=== PATIENT | female | born 1970 | race Caucasian/White ===

== ENCOUNTER → 2016-12-19 | Outpatient (CLI) | payer OTHER, MEDICAID | LOC: FIMAGING 14:06 | DX: Z12.39 Encounter for other screening for malignant neoplasm of breast (principal); N64.4 Mastodynia; N63 Unspecified lump in breast | CPT/HCPCS: 76641; G0204 ==

== ENCOUNTER → 2017-02-20 | Outpatient (CLI) | payer OTHER, MEDICAID | LOC: FIMAGING 13:20 | PROVIDERS: ATTEND Obstetrics & Gynecology Gynecology | DX: R10.2 Pelvic and perineal pain (principal); D25.2 Subserosal leiomyoma of uterus; D25.1 Intramural leiomyoma of uterus; N83.292 Other ovarian cyst, left side ==

== ENCOUNTER → 2018-03-02 | Day surgery (SDC) | payer OTHER, MEDICAID ==
[~2018-03-02] MED LIST: BUPIVACAINE 0.5% 30 ML SDV ONE; LIDOCAINE 1% 300 MG/30 ML SDV ONE; THROMBIN (BOVINE) 5,000 UNIT VIAL TP ONE
== END | disposition home or self-care (01) ==
LOC: FIMAGING 07:23
PROC: 0HBU3ZX Excision of Left Breast, Percutaneous Approach, Diagnostic (ICD-10-PCS; principal; 2018-03-02)
DX: D05.12 Intraductal carcinoma in situ of left breast (principal); N60.12 Diffuse cystic mastopathy of left breast

== ENCOUNTER 2018-06-07 17:46 | Emergency (ER) | payer OTHER, MEDICAID ==
[2018-06-07 18:04] VITALS: BP 124/58
--- NOTE | 2018-06-07 18:28 | EDPHY ---
H & P Time Seen by Provider: 06/07/18 18:06 HPI/ROS: CHIEF COMPLAINT: Lump in the right armpit HISTORY OF PRESENT ILLNESS: The patient is a 48-year-old female who presents emergency department after she noticed a lump in her right armpit. The patient states that she was recently diagnosed with DCIS. She has been followed by Dr. Yumiko Chopra. She had marker placed in her left breast. Since this marker placement she has had shooting pains down both arms and into her head. She feels as though they related. She also noted a lump in her right armpit today. She has no significant discomfort. No surrounding redness. No fevers or chills. No recent injury or infection to her arm. She has had no breast pain or nipple discharge. REVIEW OF SYSTEMS: 10 systems were reveiwed and are negative with the exception of the elements mentioned in the history of present illness. Past Medical/Surgical History: Includes DCIS, PTSD, depression Smoking Status: Never smoked Physical Exam: Vitals noted GENERAL: Well-appearing, in no acute distress, alert. HEENT: Eyes normal to inspection, normal appearing. NECK: Normal, supple. No lymphadenopathy RESPIRATORY: Clear to auscultation bilaterally, no rales, rhonchi or wheezing. CVS: Regular rate and rhythm, no rubs, murmurs, or gallops. Chest: Her breast peers normal. There is no discharge. No redness. ABDOMEN: Soft, nontender, nondistended, no organomegaly. BACK: Normal to inspection, no CVA tenderness. SKIN: Normal color, no rash, warm, dry. No pallor. 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 There is no surrounding erythema or warmth. No tenderness palpation. His mobile. Patient has no arm redness. No lesions. NEURO/PSYCH: Alert and oriented, normal mood and affect, normal motor sensory exam. Constitutional: Initial Vital Signs Temperature (C) 36.8 C 06/07/18 17:50 Heart Rate 60 06/07/18 17:50 Respiratory Rate 16 06/07/18 17:50 Blood Pressure 124/58 H 06/07/18 17:50 O2 Sat (%) 96 06/07/18 17:50 O2 Delivery Mode Room Air Allergies/Adverse Reactions: avocado Allergy (Verified 06/07/18 18:05) gluten Allergy (Verified 06/07/18 18:05) Milk Containing Products [dairy] Allergy (Verified 06/07/18 18:05) animal products Allergy (Uncoded 06/07/18 18:05) sugar Allergy (Uncoded 06/07/18 18:05) Home Medications: Medication Instructions Recorded Abilify 05/22/15 CYCLOBENZAPRINE HCL 05/22/15 Naproxen 05/22/15 Propranolol HCl 05/22/15 Medical Decision Making ED Course/Re-evaluation: In the emergency department I discussed possible etiologies with the patient. At this time I do not feel she needs imaging. My recommendation is to observe her for the next week to 10 days. She will follow up with Dr. Ball in. I do not feel she needs antibiotics. I explained this to her and answered her questions. Differential Diagnosis: My differential includes but is not limited to lymph node, lymphadenitis, mass, malignancy, abscess, ingrown hair, sebaceous cyst Departure - Departure Disposition: Home, Routine, Self-Care Clinical Impression: Lymph node symptom Condition: Good Instructions: Lymphadenopathy (ED) Additional Instructions: You need to follow-up in a week to [address] Yumiko Chopra. Return sooner if you developed pain, redness, fever or any other concerns. Referrals: Yumiko Chopra MD [Medical Doctor] - 3-4 days, if not improved
== END 2018-06-07 18:37 | disposition home or self-care (01) ==
DX: R59.1 Generalized enlarged lymph nodes (principal); Z86.000 Personal history of in-situ neoplasm of breast

== ENCOUNTER → 2018-07-01 | Day surgery (SDC) | payer OTHER, MEDICAID ==
[~2018-07-01] MED LIST changes: -THROMBIN (BOVINE) 5,000 UNIT VIAL TP ONE
== END | disposition home or self-care (01) ==
LOC: FIMAGING 07:35
PROVIDERS: ATTEND Surgery
PROC: 0HHU3YZ Insertion of Other Device into Left Breast, Percutaneous Approach (ICD-10-PCS; principal; 2018-07-01)
DX: D05.12 Intraductal carcinoma in situ of left breast (principal)

== ENCOUNTER 2018-08-06 10:30 | Emergency (ER) | payer OTHER, MEDICAID ==
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
[2018-08-06 12:29] VITALS: BP 121/78
== END 2018-08-06 12:30 | disposition home or self-care (01) ==
DX: S39.012A Strain of muscle, fascia and tendon of lower back, initial encounter (principal); S20.211A Contusion of right front wall of thorax, initial encounter; S70.01XA Contusion of right hip, initial encounter; V03.00XA Pedestrian on foot injured in collision with car, pick-up truck or van in nontraffic accident, initial encounter; F43.10 Post-traumatic stress disorder, unspecified; F32.9 Major depressive disorder, single episode, unspecified; G43.909 Migraine, unspecified, not intractable, without status migrainosus

== ENCOUNTER → 2018-12-15 | Outpatient (CLI) | payer OTHER, MEDICAID | LOC: FIMAGING 14:56 ==